=== PATIENT | female | born 1985 | race Hispanic/Latino ===

== ENCOUNTER → 2024-05-25 09:25 | Outpatient (REF) | payer OTHER, SELFPAY ==
[2024-05-25 10:45] LABS: HDL Cholesterol 44 mg/dl; LDL Cholesterol, Calculated 101 mg/dl; Total Cholesterol 201 mg/dl (50-199); Triglyceride 283 mg/dl (10-149); Very Low Density Lipoprotein 56 mg/dl (0-30)
[2024-05-25 10:59] LABS: Vitamin D, 25-OH*** 16.2 ng/mL (30-80)
== END ==
LOC: CLINIC 09:25
PROVIDERS: ATTENDING PHYSICIAN Nurse Practitioner Acute Care
DX: E55.9 Vitamin D deficiency, unspecified (principal); E78.1 Pure hyperglyceridemia
CPT/HCPCS: 36415; 80061; 82306

== ENCOUNTER → 2024-08-03 09:15 | Outpatient (REF) | payer OTHER, SELFPAY ==
[2024-08-03 10:59] LABS: HDL Cholesterol 46 mg/dl; LDL Cholesterol, Calculated 96 mg/dl; Total Cholesterol 194 mg/dl (50-199); Triglyceride 260 mg/dl (10-149); Very Low Density Lipoprotein 52 mg/dl (0-30)
[2024-08-03 11:08] LABS: HCG, Serum Qualitative Screen Negative
[2024-08-03 11:10] LABS: Vitamin D, 25-OH*** 25.8 ng/mL (30-80)
[2024-08-03 11:11] LABS: Lipase 80 U/L (23-300)
[2024-08-03 11:14] LABS: Glycohemoglobin (HgbA1c) 5.3 % (4.0-5.6)
== END ==
LOC: REG 09:15
PROVIDERS: ATTENDING PHYSICIAN Nurse Practitioner Adult Health
DX: E55.9 Vitamin D deficiency, unspecified (principal); E78.1 Pure hyperglyceridemia
CPT/HCPCS: 36415; 80061; 82306; 83036; 83690; 84703

== ENCOUNTER 2024-08-03 09:37 | Emergency (ER) | payer OTHER, SELFPAY ==
[2024-08-03 09:46] VITALS: BP 116/74
[2024-08-03 10:10] LABS: % Basophils 0.5 % (0-2); % Eosinophils 1.5 % (0-6); % Immature Granulocytes 0.3 % (0-0.5); % Lymphocytes 23.6 % (20.5-51.1); % Monocytes 5.7 % (1.7-9.3); % Neutrophils 68.4 % (42.2-75.2); Absolute Eosinophils 0.1 10^3/uL (0-0.7); Absolute Lymphocytes 2.1 10^3/uL (1.2-3.4); Absolute Monocytes 0.5 10^3/uL (0.1-0.6); Absolute Neutrophils 6.1 10^3/uL (1.4-6.5); Hematocrit 34.9 % (37.0-47.0); Hemoglobin 12.7 g/dL (12.0-16.0); Mean Corp Hgb Conc. 36.4 g/dL (33.0-37.0); Mean Corpuscular Volume 87.9 fL (81.0-99.0); Mean Platelet Volume 10.4 fL (7.4-10.4); Nucleated Red Blood Cells % 0 %; Platelet Count 230 10^3/uL (130-400); Red Blood Cell Count 3.97 10^6/uL (4.20-5.40); Red Cell Dist. Width 11.9 % (11.5-14.5); White Blood Cell Count 8.9 10^3/uL (4.8-10.8)
[2024-08-03 10:36] LABS: ALT (SGPT) 66 U/L (0-35); AST (SGOT) 35 U/L (14-36); Albumin 4.5 g/dl (3.5-5.0); Alkaline Phosphatase 110 U/L (38-126); Blood Urea Nitrogen 11 mg/dl (7-17); Calcium 9.4 mg/dl (8.4-10.2); Carbon Dioxide 21 mmol/L (22-30); Chloride 105 mmol/L (98-107); Glucose 88 mg/dl (70-99); Sodium 140 mmol/L (135-145); Total Bilirubin 0.4 mg/dl (0.2-1.3); Total Protein 7.3 g/dl (6.3-8.2); eGFR > 60.00
--- NOTE | 2024-08-03 10:42 | ED.GENMED ---
History of Present Illness
<Jimena Lira PA-C - Last Filed: 08/03/24 18:46>
General
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
Source: patient
Exam Limitations: none
Time Seen by Provider: 08/03/24 10:42
Nursing documentation reviewed up to this point in time: agreed with
History of Present Illness
History of Present Illness:
This is a 38-year-old female with no past medical history presenting with department today with concerns of right lower quadrant abdominal pain that radiates to the right flank for the past 3 days. Patient reports that this started upon wakening's
in the morning. Patient states that pain has been progressively getting more severe since then. She rates the pain an 8 out of 10 in severity. She states it is worse with movement. She has nausea but no vomiting. She has been eating okay and
notes no change in her appetite. She denies any fevers or chills. She denies any urinary symptoms, denies any urinary frequency or urgency, denies dysuria. She denies any diarrhea or constipation, denies any recent travel. She has had 3
C-sections in the past but otherwise no abdominal or pelvic surgery. She also notes a mild cough but denies any chest pain or shortness of breath. Denies any medical history or daily medications. Denies any allergies to any medications. Her last
menstrual period was July 19, she denies any abnormal vaginal discharge, any bleeding.
Past History
<Jimena Lira PA-C - Last Filed: 08/03/24 18:46>
Past History
ED Past Medical History: None
Social History
Tobacco: Non-smoker
Alcohol: None
Drug: None
Personal: Single
Living: with family
Review of Systems
<Jimena Lira PA-C - Last Filed: 08/03/24 18:46>
Review of Systems
All Other Systems: ROS reviewed and negative except as documented in HPI and ROS
Phy Exam
<Jimena Lira PA-C - Last Filed: 08/03/24 18:46>
Physical Exam
Physical Exam:
General: Patient is well appearing and in no acute distress; non-toxic
Skin: Warm and dry, no rashes or lesions
Head: Normocephalic, atraumatic
Eyes: Sclera non-icteric. EOMs intact. PERRLA.
Cardiac: Mildly tachycardic otherwise regular rhythm, no murmurs
Peripheral Vascular: No lower extremity swelling or edema
Pulm: Normal respiratory effort, no wheezes, rhonchi
Abdomen: Tenderness palpation at McBurney's point, no palpable abdominal mass, no guarding, no rebound tenderness, no CVA tenderness
Neuro: CN II-XII intact, no focal neurologic deficits.
Psychiatric: Appropriate mood and affect.
Course
<NEFTALI Howell Last Filed: 08/03/24 18:46>
Orders/Labs/Results
Orders:
Orders
08/03/24 09:49
Test Result ONCE
08/03/24 09:59
Complete Blood Count/With Diff Urgent
Comprehensive Metabolic Panel Urgent
HCG, Serum Qualitative Screen Urgent
Comment: ADDON
Urinalysis Reflex To Culture Urgent
Date Specimen was Collected: 08/03/24
Time Specimen was Collected: 09:49
08/03/24 10:44
Add On- LAB Urgent
Tests Added?: serum hcg
08/03/24 10:56
Add On- LAB Urgent
Tests Added?: lipase
08/03/24 11:25
CT Abd/pelvis W Iv Cont Urgent
Comment:
Reason For Exam: RLQ pain, R flank pain
Ondansetron Injectable [Zofran] 4 mg IV NOW STA
08/03/24 11:26
Add On - Microbiology Urgent
Tests Added?: urine preg
08/03/24 12:27
Ketorolac [Toradol] 15 mg IV NOW STA
08/03/24 15:05
US Transvaginal [US Pelvis W Transvag Combined] Urgent
Comment:
Reason For Exam: RLQ pain
Abnormal Lab Results
08/03/24
09:59
RBC 3.97 L 10^6/uL
(4.20-5.40)
Hct 34.9 L %
(37.0-47.0)
MCH 32.0 H pg
(27.0-31.0)
Carbon Dioxide 21 L mmol/L
(22-30)
ALT 66 H U/L
(0-35)
08/03/24 09:59
08/03/24 09:59
Vital Signs
Initial and Last Documented VS:
Initial Vital Signs
Temp Pulse Resp BP Pulse Ox
99.1 F 88 18 116/74 99
08/03/24 09:46 08/03/24 09:46 08/03/24 09:46 08/03/24 09:46 08/03/24 09:46
Last Documented Vital Signs
Temp Pulse Resp BP Pulse Ox
99.1 F 79 15 118/70 100
08/03/24 09:46 08/03/24 17:56 08/03/24 11:40 08/03/24 15:17 08/03/24 17:56
<Terrance Basurto MD - Last Filed: 08/03/24 14:37>
Orders/Labs/Results
Orders:
Orders
08/03/24 09:49
Test Result ONCE
08/03/24 09:59
Complete Blood Count/With Diff Urgent
Comprehensive Metabolic Panel Urgent
HCG, Serum Qualitative Screen Urgent
Comment: ADDON
Urinalysis Reflex To Culture Urgent
Date Specimen was Collected: 08/03/24
Time Specimen was Collected: 09:49
08/03/24 10:44
Add On- LAB Urgent
Tests Added?: serum hcg
08/03/24 10:56
Add On- LAB Urgent
Tests Added?: lipase
08/03/24 11:25
CT Abd/pelvis W Iv Cont Urgent
Comment:
Reason For Exam: RLQ pain, R flank pain
Ondansetron Injectable [Zofran] 4 mg IV NOW STA
08/03/24 11:26
Add On - Microbiology Urgent
Tests Added?: urine preg
08/03/24 12:27
Ketorolac [Toradol] 15 mg IV NOW STA
08/03/24 15:05
US Transvaginal [US Pelvis W Transvag Combined] Urgent
Comment:
Reason For Exam: RLQ pain
Abnormal Lab Results
08/03/24
09:59
RBC 3.97 L 10^6/uL
(4.20-5.40)
Hct 34.9 L %
(37.0-47.0)
MCH 32.0 H pg
(27.0-31.0)
Carbon Dioxide 21 L mmol/L
(22-30)
ALT 66 H U/L
(0-35)
08/03/24 09:59
08/03/24 09:59
Vital Signs
Initial and Last Documented VS:
Initial Vital Signs
Temp Pulse Resp BP Pulse Ox
99.1 F 88 18 116/74 99
08/03/24 09:46 08/03/24 09:46 08/03/24 09:46 08/03/24 09:46 08/03/24 09:46
Last Documented Vital Signs
Temp Pulse Resp BP Pulse Ox
99.1 F 79 15 118/70 100
08/03/24 09:46 08/03/24 17:56 08/03/24 11:40 08/03/24 15:17 08/03/24 17:56
<Jimena Lira PA-C - Last Filed: 08/03/24 18:46>
MDM/Problems Addressed
Differential Diagnosis Includes:
Differentials include appendicitis, ovarian mass, ovarian torsion, ectopic , biliary colic, pyelonephritis, nephrolithiasis
MDM/Problems Addressed:
This is a 38-year-old female with no past medical history presenting with department today with concerns of right lower quadrant abdominal pain that radiates to the right flank for the past 3 days. She is no fevers or chills. Some nausea but no
vomiting, no constipation or diarrhea. She has had multiple C-sections in the past but otherwise no abdominal surgeries. The pains been getting progressively worse. On exam, she is well-appearing but does have significant tenderness at McBurney's
point but no CVA tenderness. Her labs reveal no leukocytosis, no anemia. Her CMP is unremarkable, lipase pending. Her urinalysis shows no evidence of infection occult blood. CT scan was performed which was negative for any evidence of
appendicitis. On reassessment, patient's pain did mildly improved with Toradol. Will proceed with pelvic ultrasound.
Pelvic ultrasound normal. Patient no longer has pain. Unclear etiology of her symptoms at this time. Did recommend referral with trimmer hand for further evaluation should she have a recurrence or persistence of her symptoms. Patient
stable for discharge.
Chronic conditions affecting care:
N/A
Acute Exacerbation and/or Progression of Chronic Illness:
N/A
<Jimena Lira PA-C - Last Filed: 08/03/24 18:46>
*Pulse Oximetry
Patient hypoxic: no
*Critical Care Note
Total Time (30-74mins, 75-104mins- exclusive of procedures): Not Applicable
Data Reviewed
Review of Other/Old Records Reveals: Records (Reviewed ER physician documentation from 07/09/2015, patient was seen for pharyngitis)
Source: patient and records
Prescriptions/Medications Considered But Not Given:
n/a
ED Attending Note
<Jimena Lira PA-C - Last Filed: 08/03/24 18:46>
-
Portions of this chart may have been created with voice recognition software.� Occasional wrong word or��sound alike� substitutions may have occurred due to the inherent limitations of voice recognition software.
<Terrance Basurto MD - Last Filed: 08/03/24 14:37>
ED Attending Note
Patient seen and examined by attending physician: Yes
ED Attending Note:
I have seen and evaluated the patient with a [id number] encounter. I have spoken to the advance practicer provider and involved in the medical history, the physical exam, medical decision making.
Evaluation and management service: agree unless noted differently below.
Results interpretation: agree unless noted differently below.
Focused HPI: 38-year-old female with no reported chronic medical issues presents to the emergency room for evaluation of abdominal pain. Patient reports onset of symptoms on Friday and have been constant since that time. She reports pain located
in the right lower quadrant radiates towards the right flank. No clear triggering or relieving factors noted. She says she has associated nausea but no vomiting. No diarrhea or constipation. She denies any fevers or chills. She denies any
vaginal bleeding or discharge. Last menstrual period was about 2 weeks ago. She denies any dysuria, hematuria, change in urinary frequency. She denies any other complaints.
Physical exam: Awake alert, nontoxic. Vitals normal. Abdomen soft, tender to palpation right lower quadrant. No CVA tenderness. Extremities warm and well-perfused.
Differential diagnosis: Appendicitis, ovarian cyst, UTI, nephrolithiasis, mesenteric adenitis, abdominal wall strain
Medical Decision Makin-year-old female presents to the emergency room for evaluation of right lower quadrant abdominal pain x 48 hours. Vitals normal, exam as above. Place an IV check labs including a CBC and a CMP, hCG. Check urinalysis.
Check CT abdomen pelvis. Reassess after the above.
Discharge Plan
Departure
Patient Disposition: Home (Routine Discharge)
Date of Disposition: 08/03/24
Time of Disposition: 18:41
Patient with high blood pressure during this ER visit?: No
Condition: Good
Discharge Problem:
Abdominal pain
Instructions: Abdominal Pain, BLOOD PRESSURE
Prescriptions:
No Action
amoxicillin 500 MG capsule
500 mg PO BID Qty: 20 0RF
Referrals:
Delia Barker MD [Active] - Call in 1-3 days for appt
NONE,* [Family Provider] -
Ashanti Adkins DO [Active] - Call in 1-3 days for appt
Activity Restrictions/Additional Instructions:
We have attached a referral for a trimmer hand. Please call the attached number to schedule an appointment for evaluation. Your CAT scan and your ultrasound were normal.
Please return to the emergency department should you experience acute worsening of your pain, intractable nausea or vomiting, burning with urination, blood in your urine, back pain, difficulty speaking, or any other signs or symptoms concerning to
you.
Interventions
Interventions:
ED- Fall Risk Assessment Last Done: 08/03/24 11:34
ED-Female Genitourinary Assessment Last Done: 08/03/24 11:42
Discharge Date and Time
Print Language: BRUNEIAN
[2024-08-03 10:50] LABS: Urine Albumin Negative (Neg - Trace); Urine Bilirubin Negative (Negative); Urine Character Clear (Clear); Urine Color Yellow; Urine Glucose Negative (Negative); Urine Ketone Negative (Negative); Urine Leukocyte Negative (Negative); Urine Nitrite Negative (Negative); Urine Occult Blood Negative (Negative); Urine Specific Gravity 1.015 (<1.030); Urine Urobilinogen Negative (Neg - 1+)
[2024-08-03 11:33] VITALS: BMI 31.7
[2024-08-03] MEDS: ZOFRAN 4 MG IV (11:39)
[2024-08-03 11:40] VITALS: BP 110/83
[2024-08-03 11:57] LABS: HCG, Serum Qualitative Screen Negative
[2024-08-03] MEDS: TORADOL 15 MG IV (12:56)
[2024-08-03 15:17] VITALS: BP 118/70
[2024-08-03 18:51] VITALS: BP 122/75
== END 2024-08-03 18:52 | disposition home or self-care (01) ==
LOC: EMR 09:37
PROVIDERS: EMERGENCY PHYSICIAN Emergency Medicine
DX: R10.31 Right lower quadrant pain (principal); R11.0 Nausea
CPT/HCPCS: 99284; 96374; 96375; 74177; 76830; 76856; 80053; 81003; 84703; 85025; Q9967

== ENCOUNTER → 2025-02-26 10:38 | Outpatient (REF) | payer OTHER, SELFPAY ==
[2025-02-26 12:39] LABS: ALT (SGPT) 21 U/L (0-35); AST (SGOT) 21 U/L (14-36); Albumin 4.3 g/dl (3.5-5.0); Alkaline Phosphatase 90 U/L (38-126); Blood Urea Nitrogen 10 mg/dl (7-17); Calcium 9.5 mg/dl (8.4-10.2); Carbon Dioxide 24 mmol/L (22-30); Chloride 106 mmol/L (98-107); Glucose 83 mg/dl (70-99); HDL Cholesterol 37 mg/dl; LDL Cholesterol, Calculated 114 mg/dl; Potassium 4.2 mmol/L (3.5-5.1); Sodium 141 mmol/L (135-145); Total Bilirubin 0.6 mg/dl (0.2-1.3); Total Cholesterol 190 mg/dl (50-199); Total Protein 7.4 g/dl (6.3-8.2); Triglyceride 197 mg/dl (10-149); Very Low Density Lipoprotein 39 mg/dl (0-30); eGFR > 60.00
[2025-02-26 13:18] LABS: Vitamin D, 25-OH*** 26.7 ng/mL (30-80)
== END ==
LOC: REG 10:38
PROVIDERS: ATTENDING PHYSICIAN Nurse Practitioner Adult Health
DX: E78.1 Pure hyperglyceridemia (principal); E55.9 Vitamin D deficiency, unspecified
CPT/HCPCS: 36415; 80053; 80061; 82306

== ENCOUNTER → 2025-07-05 08:48 | Outpatient (REF) | payer OTHER, SELFPAY ==
[2025-07-05 10:10] LABS: Vitamin D, 25-OH*** 32.0 ng/mL (30-80)
== END ==
LOC: CLINIC 08:48
PROVIDERS: ATTENDING PHYSICIAN Nurse Practitioner Adult Health
DX: E55.9 Vitamin D deficiency, unspecified (principal)
CPT/HCPCS: 36415; 82306

== ENCOUNTER 2025-11-07 08:59 | Emergency (ER) | payer SELFPAY ==
[2025-11-07 09:09] VITALS: BP 142/94
--- NOTE | 2025-11-07 10:15 | ED.MUSCINJ ---
HPI-Injury
General
Chief Complaint: Fall
Source: patient
Exam Limitations: none
Time Seen by Provider: 11/07/25 10:01
Nursing documentation reviewed up to this point in time: agreed with
History of Present Illness-Injury
Initial Injury comments:
Note:
CHIEF COMPLAINT(S)
Injury after a fall.
HISTORY OF PRESENT ILLNESS
The patient is a 39-year-old female who presented to the emergency department following a fall on stone stairs at home. She reports falling last night and denies that anyone pushed her. She did not experience any head injuries with the fall. She has
been experiencing pain, described as bruising, in the affected area. The patient was evaluated with X-rays, which showed no fractures or major injuries; however, there may be a minor bruise or small fracture not visible on the X-ray. The examination
revealed a muscle strain in the neck, but no significant injuries were noted in this region. The patient has not taken much for pain relief prior to the visit and cannot recall when she last had her menstrual period but confirms she is not currently
.
MEDICATIONS
The patient was offered a non-narcotic pain management approach, and she agreed to receive an injection of Ketorolac (Tordol).
REVIEW OF SYSTEMS
- Musculoskeletal: Bruising and pain in the area of injury, no major fractures observed on X-ray, muscle strain in neck.
- Neurological: Denies hitting her head during the fall.
PHYSICAL EXAM
General: Alert, no acute distress.
Skin: Warm, dry.
Head: Normocephalic, atraumatic.
Neck: Supple, trachea midline, muscle strain noted.
Eye Ears, nose, mouth and throat: Oral mucosa moist.
Cardiovascular: Normal peripheral perfusion, No edema.
Respiratory: Respirations are non-labored. left chest wall tenderness, normal excursion, clear lungs bilateral
Gastrointestinal: Abdomen nondistended
Back: Normal range of motion, Normal alignment.
Musculoskeletal: Bruising present, normal range of motion, normal strength.
Neurological: Alert and oriented to person, place, time, and situation, No focal neurological deficit observed.
Psychiatric: Cooperative, appropriate mood & affect.
PLAN
- Administer an injection of Ketorolac for pain management.
- Recommend the use of Acetaminophen or Ibuprofen and apply ice to the affected area for additional pain relief.
- Advise that the symptoms may persist for a while but should improve with these measures.
DIFFERENTIAL DIAGNOSIS
The Differential Diagnosis includes, in no particular order and is not limited to:
1. Contusion
2. Muscular strain
3. Minor fracture
4. Hematoma
5. Ligament sprain
6. Rib fracture
7. Soft tissue injury
8. Tendon injury
9. Joint dislocation
10. Osteoporosis-related injury
CARE-UPDATE
11/07/25 - 10:16
Rib series confirms no fracture or pneumothorax. Continue with Toradol for pain management and apply wide-ed-arm patch for support. Thoracic spine shows no abnormalities.
Disposition:
SUMMARY OF ENCOUNTER
The patient is a 39-year-old female who presented to the emergency department following a fall on stone stairs at home. She reported experiencing pain and bruising in the affected area. An X-ray of the chest wall was performed and showed no
fractures or signs of pneumothorax. The patients condition was stable enough for discharge, and a muscle strain was noted in the neck, but no other significant injuries were found.
DISPOSITION
Discharge
ASSESSMENT
Left chest wall contusion, no signs of pneumothorax, no rib fracture.
EMERGENCY TREATMENTS ADMINISTERED
Injection of Ketorolac for pain management.
PLAN
The patient received an injection of Ketorolac for immediate pain relief and was advised to use Acetaminophen or Ibuprofen, along with ice application for further pain management. The symptoms are anticipated to improve with these measures.
INDEPENDENT REVIEW OF LABS AND INTERPRETATION OF TESTS
- My independent interpretation of the chest X-ray is that it shows no fractures or pneumothorax.
PATIENT EDUCATION AND COUNSELING
The patient was educated about the nature of her injury and was advised on pain management techniques including the use of [id number] pain relievers and ice application. She was informed that the symptoms might persist for a while but should
improve with the advised measures.
FOLLOW-UP INSTRUCTIONS
Follow up with primary care for further evaluation and management.
MEDICATION RECONCILIATION
- Administered: Ketorolac injection.
- Prescriptions: Advised use of Acetaminophen or Ibuprofen for ongoing pain management.
MEDICAL DECISION MAKING
- Number and Complexity of Problems Addressed: Chronic conditions affecting care include left chest wall contusion and muscle strain. Differential diagnosis includes contusion, muscular strain, minor fracture, hematoma, among others.
- Data:
- Category 1: My independent interpretation of chest X-ray showed no fractures or pneumothorax.
- Risk: Prescription medication management was discussed and administered during the visit. The risk of complications was low given the stable condition of the patient.
DIAGNOSIS
- S20.219A - Contusion of left front wall of thorax, initial encounter.
- M62.838 - Other muscle spasm.
Past History
Past History
ED Past Medical History: None
Social History
Tobacco: Non-smoker
Alcohol: None
Drug: None
Personal: Single
Living: with family
Phy Exam
Physical Exam
Physical Exam:
.
Injury Course
Orders/Labs/Results
Orders:
Orders
11/07/25 09:13
CR Ribs-left 3 Vw W/pa Chest Urgent
Comment:
Reason For Exam: fall
11/07/25 10:12
Ketorolac [Toradol] 15 mg IM NOW STA
11/07/25 10:15
Lidocaine [Lidocaine 4% Patch] 1 patch TOPICAL DAILY
Apply Lidocaine patch(s) to:: left chest wall
*Pulse Oximetry
SaO2: 99
Oxygen Mode of Delivery: Room air
Patient hypoxic: no
*Critical Care Note
Total Time (30-74mins, 75-104mins- exclusive of procedures): Not Applicable
ED Attending Note
-
Portions of this chart may have been created with voice recognition software.� Occasional wrong word or��sound alike� substitutions may have occurred due to the inherent limitations of voice recognition software.
Discharge Plan
Departure
Patient Disposition: Home (Routine Discharge)
Date of Disposition: 11/07/25
Time of Disposition: 10:17
Patient with high blood pressure during this ER visit?: Yes
Condition: Good
Discharge Problem:
Contusion of left chest wall
Instructions: Preventing falls in adults, Rib fracture or bruised rib - ED (DC), BLOOD PRESSURE
Prescriptions:
No Action
amoxicillin 500 MG capsule
500 mg PO BID Qty: 20 0RF
Referrals:
Gloria Ramirez CRNP [Family Provider, Family Practice]
Interventions
Interventions:
*General Assessment Last Done: 11/07/25 09:09
*Neglect/Abuse Screening Last Done: 11/07/25 09:09
*ED COVID-19 Vaccine History Last Done: 11/07/25 09:09
*ED Influenza Vaccine History Last Done: 11/07/25 09:09
[facility] Risk Assessment Tool Last Done: 11/07/25 09:50
*Risk Screen - Suicide (C-SSRS) Last Done: 11/07/25 09:09
ED-Musculoskeletal Assessment Last Done: 11/07/25 09:50
ED- Neurological Assessment Last Done: 11/07/25 09:50
ED-Skin Assessment Last Done: 11/07/25 09:50
Discharge Date and Time
Print Language: MARSHALLESE
[2025-11-07 10:23] VITALS: BMI 26.3
[2025-11-07] MEDS: TORADOL 15 MG IM (10:26)
[2025-11-07] MEDS: LIDOCAINE 4% PATCH 1 PATCH TOPICAL (10:26)
== END 2025-11-07 10:30 | disposition home or self-care (01) ==
LOC: EMR 08:59
PROVIDERS: EMERGENCY PHYSICIAN Emergency Medicine; FAMILY PHYSICIAN Nurse Practitioner Acute Care
DX: S20.212A Contusion of left front wall of thorax, initial encounter (principal); M62.838 Other muscle spasm; W10.8XXA Fall (on) (from) other stairs and steps, initial encounter; Y92.009 Unspecified place in unspecified non-institutional (private) residence as the place of occurrence of the external cause
CPT/HCPCS: 96372; 99284; 71101